=== PATIENT | male | born 1955 | race Caucasian/White ===

== ENCOUNTER → 2016-10-11 | Outpatient (CLI) | payer OTHER ==
--- NOTE | 2016-10-19 13:55 | DIAGNOSTIC IMAGING REPORT ---
PROCEDURE: 2-D sestamibi Lexiscan stress study CLINICAL INDICATION: Shortness of breath dizziness TECHNIQUE: 30 mCi of tech sestamibi was injected 20 seconds after the injection of Lexiscan with SPECT tomography then performed next business day the patient return a rest study with 30 mCi of tech sestamibi injected at rest with SPECT tomography performed rest and stress images were then compared. COMPARISON: None FINDINGS: For Lexiscan stress portion of the test please see Internal Medicine this dictation The left ventricle seemed to be normal in the left ventricle with stress exhibits no defects over the rest study no defects are apparent. Left Ventricular size function contractility is normal ejection fraction 72%. There is no t.i.d. Apparent IMPRESSION: No evidence for fixed ischemic defects Normal left ventricular size function contractility with ejection fraction 72% Comment: this is a low risk study
== END ==
LOC: RT SRH 12:51
DX: R42 Dizziness and giddiness (principal); R06.02 Shortness of breath